=== PATIENT | female | born 1975 | race Caucasian/White ===

== ENCOUNTER → 2020-03-26 10:50 | Outpatient (BNVA) | payer BC, SELFPAY | PROVIDERS: Visit Provider Nurse Practitioner Family | DX: Z20.828 Contact with and (suspected) exposure to other viral communicable diseases (principal) | CPT/HCPCS: 87635 ==

== ENCOUNTER → 2020-10-07 17:41 | Outpatient (BNVA) | payer OTHER, SELFPAY | PROVIDERS: PCP Nurse Practitioner Family; Visit Provider Nurse Practitioner Family | DX: M79.672 Pain in left foot (principal) | CPT/HCPCS: 73630 ==

== ENCOUNTER → 2021-05-28 10:57 | Outpatient (BNVA) | payer OTHER, SELFPAY | PROVIDERS: PCP Nurse Practitioner Family; Visit Provider Nurse Practitioner Family | DX: R10.9 Unspecified abdominal pain (principal); R19.7 Diarrhea, unspecified; I10 Essential (primary) hypertension; R60.0 Localized edema | CPT/HCPCS: 80048; 85025; 87506 ==

== ENCOUNTER → 2022-02-07 08:40 | Outpatient (BNVA) | payer OTHER, SELFPAY | PROVIDERS: PCP Nurse Practitioner Family; Visit Provider Nurse Practitioner Family | DX: I10 Essential (primary) hypertension (principal) | CPT/HCPCS: 80053; 80061 ==

== ENCOUNTER 2022-12-11 11:00 | Outpatient (CLI) | payer OTHER, SELFPAY ==
--- NOTE | 2022-12-11 11:28 | XR_ITS ---
WS: [id number] Right wrist, 3 views, 12/11/2022 Clinical Data: M25.539 - Pain in unspecified wrist Comparison: None. Findings: No fractures or dislocations are seen. The carpal bones are intact. There is no soft tissue swelling. The distal radius is not remarkable.There is a small calcification adjacent to the tip of the right ulnar styloid which may be from an old injury. XR/XR wrist RT min 3V* [id number] Impression: Negative right wrist.
--- NOTE | 2022-12-11 11:28 | XR_ITS ---
WS: [id number] Right hand, 3 views, 12/11/2022 Clinical Data: M79.641 - Pain in right hand Comparison: None. Findings: No fractures or dislocations are seen. The soft tissues are unremarkable. The joint space s are normal Periarticular demineralization or calcifications are seen. XR/XR hand RT min 3V* [id number] Impression: Negative right hand.
== END 2022-12-11 11:01 | disposition home or self-care (01) ==
PROVIDERS: PCP Nurse Practitioner Family; Visit Provider Nurse Practitioner Family
DX: M25.531 Pain in right wrist (principal); M79.641 Pain in right hand
CPT/HCPCS: 73110; 73130